=== PATIENT | female | born 1930 | race Caucasian/White ===

== ENCOUNTER 2018-12-21 18:23 | Inpatient (IN) | payer OTHER ==
--- NOTE | 2018-12-21 18:27 | PDOC ---
History of Present Illness - General History Source: Patient Exam Limitations: No Limitations, Clinical Condition - History of Present Illness Initial Comments: 88 yo F w a pmh of 3 CVAs, GA s/p stent, Afib, HTN, HCL, Pneumonia, COPD, Hiatal hernia, T2DM, cataracts presents to the ER with 1 day of confusion, nausea but no emesis, and a productive cough. The patient states she feels well and does not need to be here in the hospital. Her son who is at bedside says that something is wrong because yesterday his mom was able to walk with difficulty but today her legs are weak and she is having a hard time walking. She admits to orthopnea and recent dyspnea on exertion. The patient reports she took some mucinex this morning that she believes is the reason she is confused. The patient denies having a headache, blurry vision, neck pain, chest pain, SOB , difficulty breathing, numbness, weakness, tingling, chills, recent infections , abdominal pain, dysuria, frequency, or urgency. PCP: Dr. Saini PSH: Cataracts, stent Allergies: NKA, NKDA Social Hx: Former smoker quit in 1994, denies drinking alcohol or other substance usage. <Thomas Platt - Last Filed: 12/21/18 19:15> <Melina Dudley - Last Filed: 12/22/18 06:43> <Jennifer Ruiz - Last Filed: 12/22/18 07:27> - General Chief Complaint: Nausea Stated Complaint: NAUSEA Time Seen by Provider: 12/21/18 18:26 Past History - Past Medical History Anemia: No Asthma: No Cancer: Yes Cardiac Disorders: Yes (A-FIB, X 2 YEARS,HAD SUCCESSFUL CARDIOVERSION TILL 03/23 WHEN HAD INFECTION) CVA: Yes (2009,PERIPHERAL VISION IS GONE) COPD: Yes (MILD) CHF: No Dementia: No Diabetes: Yes (NIDDM) GI Disorders: Yes (HIATAL HERNIA) Disorders: No HTN: Yes Hypercholesterolemia: Yes Kidney Stones: Yes Liver Disease: No Seizures: No Thyroid Disease: No - Surgical History Abdominal Surgery: No Appendectomy: No Cardiac Surgery: Yes (STENT X1 2010,S/P SLIGHT GA 2010) Cholecystectomy: Yes () Lung Surgery: No Neurologic Surgery: No Orthopedic Surgery: No - Suicide/Smoking/Psychosocial Hx Smoking Status: No Smoking History: Former smoker Have you smoked in the past 12 months: No Number of Cigarettes Smoked Daily: 0 If you are a former smoker, when did you quit?: 1994 Hx Alcohol Use: No Drug/Substance Use Hx: No Substance Use Type: None Hx Substance Use Treatment: No <Thomas Platt - Last Filed: 12/21/18 19:15> <Melina Dudley - Last Filed: 12/22/18 06:43> <Jennifer Ruiz - Last Filed: 12/22/18 07:27> - Past Medical History Allergies/Adverse Reactions: Allergies Allergy/AdvReac Type Severity Reaction Status Date / Time No Known Allergies Allergy Verified 12/21/18 18:31 Home Medications: Ambulatory Orders Aspirin [ASA -] 81 mg PO DAILY 12/21/18 Candesartan Cilexetil [Atacand] 4 mg PO HS 12/21/18 Carvedilol [Coreg -] 12.5 mg PO BID 12/21/18 Famotidine [Acid Controller] 20 mg PO DAILY 12/21/18 Furosemide [Lasix] 20 mg PO DAILY 12/21/18 Potassium Chloride 0 meq PO BID 12/21/18 Sertraline HCl [Zoloft -] 0 mg PO DAILY 12/21/18 Simvastatin [Zocor -] 20 mg PO HS 12/21/18 Warfarin Sodium [Coumadin] 5 mg PO ASDIR 12/21/18 Review of Systems - Review of Systems Able to Perform ROS?: Yes Comments:: CONSTITUTIONAL: Present: Fever Absent: no chills, no fatigue EYES: Absent: visual changes ENT: Absent: ear pain, no sore throat CARDIOVASCULAR: Absent: chest pain, no palpitations RESPIRATORY: Present: Cough Absent: no SOB GI: Present: Nausea Absent: abdominal pain, no vomiting, no constipation, no diarrhea GENITOURINARY: Absent: dysuria, no frequency, no hematuria MUSKULOSKELETAL: Absent: back pain, no arthralgia, no myalgia SKIN: Absent: rash NEURO: Absent: headache <Thomas Platt - Last Filed: 12/21/18 19:15> *Physical Exam - Physical Exam Comments: Rectal Temp: 101.5 GENERAL: Patient is confused and speaks slowly. Well-appearing, well-nourished. No apparent distress. HEENT: Normocephalic, atraumatic. PERRL, EOM intact. CARDIOVASCULAR: Tachycardic rate. Normal S1, S2. Irregular rhythm. PULMONARY: No evidence of respiratory distress. Crackles at the right base. No wheezing, rales or rhonchi. ABDOMEN: Soft, non-distended, non-tender. EXTREMITIES: Normal ROM in all four extremities. No gross deformities. 1+ edema in both legs. SKIN: Warm, dry. No rash NEUROLOGICAL: No focal neurological deficits. <Thomas Platt - Last Filed: 12/21/18 19:15> - Vital Signs Last Vital Signs Temp Pulse Resp BP Pulse Ox 100 F H 76 18 108/48 L 95 12/21/18 21:31 12/21/18 21:31 12/21/18 21:31 12/21/18 21:31 12/21/18 21:31 <Melina Dudley - Last Filed: 12/22/18 06:43> - Vital Signs Last Vital Signs Temp Pulse Resp BP Pulse Ox 98.5 F 85 18 147/64 95 12/22/18 04:38 12/22/18 04:38 12/22/18 04:38 12/22/18 04:38 12/22/18 06:45 <Jennifer Ruiz - Last Filed: 12/22/18 07:27> Moderate Sedation - Procedure Monitoring Vital Signs: Procedure Monitoring Vital Signs Temperature 100 F H 12/21/18 21:31 Pulse Rate 76 12/21/18 21:31 Respiratory Rate 18 12/21/18 21:31 Blood Pressure 108/48 L 12/21/18 21:31 O2 Sat by Pulse Oximetry (%) 95 12/21/18 21:31 <Melina Dudley - Last Filed: 12/22/18 06:43> - Procedure Monitoring Vital Signs: Procedure Monitoring Vital Signs Temperature 98.5 F 12/22/18 04:38 Pulse Rate 85 12/22/18 04:38 Respiratory Rate 18 12/22/18 04:38 Blood Pressure 147/64 12/22/18 04:38 O2 Sat by Pulse Oximetry (%) 95 12/22/18 06:45 <Jennifer Ruiz - Last Filed: 12/22/18 07:27> ED Treatment Course - LABORATORY CBC & Chemistry Diagram: 12/21/18 19:02 12/21/18 19:02 - ADDITIONAL ORDERS Additional order review: Laboratory Results 12/21/18 12/21/18 12/21/18 21:33 19:02 19:02 PT with INR INR PTT (Actin FS) VBG pH POC VBG pCO2 POC VBG pO2 Mixed VBG HCO3 Sodium Potassium Chloride Carbon Dioxide Anion Gap BUN Creatinine Creat Clearance w eGFR Random Glucose Lactic Acid 1.8 Calcium Total Bilirubin AST ALT Alkaline Phosphatase Troponin I B-Natriuretic Peptide 4272.6 H Total Protein Albumin Urine Color Yellow Urine Appearance Clear Urine pH 5.5 Ur Specific [place] 1.020 Urine Protein Negative Urine Glucose (UA) Negative Urine Ketones Negative Urine Blood Negative Urine Nitrite Negative Urine Bilirubin Negative Urine Urobilinogen 0.2 Ur Leukocyte Esterase Negative 12/21/18 12/21/18 12/21/18 19:02 19:02 19:02 PT with INR 24.5 H INR 2.22 H PTT (Actin FS) 32.3 VBG pH 7.36 POC VBG pCO2 44.5 POC VBG pO2 31.0 Mixed VBG HCO3 24.7 Sodium Potassium Chloride Carbon Dioxide Anion Gap BUN Creatinine Creat Clearance w eGFR Random Glucose Lactic Acid Calcium Total Bilirubin AST ALT Alkaline Phosphatase Troponin I < 0.03 B-Natriuretic Peptide Total Protein Albumin Urine Color Urine Appearance Urine pH Ur Specific [place] Urine Protein Urine Glucose (UA) Urine Ketones Urine Blood Urine Nitrite Urine Bilirubin Urine Urobilinogen Ur Leukocyte Esterase 12/21/18 19:02 PT with INR INR PTT (Actin FS) VBG pH POC VBG pCO2 POC VBG pO2 Mixed VBG HCO3 Sodium 137 Potassium 4.4 Chloride 105 Carbon Dioxide 22 Anion Gap 10 BUN 28 H Creatinine 1.1 Creat Clearance w eGFR 46.77 Random Glucose 141 H Lactic Acid Calcium 8.6 Total Bilirubin 0.7 AST 41 H ALT 33 Alkaline Phosphatase 111 Troponin I B-Natriuretic Peptide Total Protein 6.7 Albumin 3.2 L Urine Color Urine Appearance Urine pH Ur Specific [place] Urine Protein Urine Glucose (UA) Urine Ketones Urine Blood Urine Nitrite Urine Bilirubin Urine Urobilinogen Ur Leukocyte Esterase 12/21/18 19:02 RBC 4.19 MCV 92.0 MCHC 32.3 RDW 13.6 MPV 9.3 Neutrophils % 83.9 H Lymphocytes % 6.9 L Monocytes % 7.0 Eosinophils % 2.0 Basophils % 0.2 - Medications Given in the ED: ED Medications Discontinued Medications Generic Name Dose Route Start Last Admin Trade Name Francisco PRN Reason Stop Dose Admin Acetaminophen 1,000 mg 12/21/18 19:04 12/21/18 19:11 Ofirmev Injection - IVPB 12/21/18 19:05 1,000 mg ONCE ONE Administration Diltiazem HCl 10 mg 12/21/18 18:45 12/21/18 19:53 Cardizem Injection - IVPUSH 12/21/18 18:46 10 mg ONCE ONE Administration Ondansetron HCl 4 mg 12/21/18 18:45 12/21/18 19:11 Zofran Injection IVPUSH 12/21/18 18:46 4 mg ONCE ONE Administration Sodium Chloride 1,000 ml 12/21/18 18:46 12/21/18 19:15 Normal Saline - IV 12/21/18 18:47 1,000 ml ONCE ONE Administration <Melina Dudley - Last Filed: 12/22/18 06:43> - LABORATORY CBC & Chemistry Diagram: 12/21/18 19:02 12/21/18 19:02 - ADDITIONAL ORDERS Additional order review: Laboratory Results 12/21/18 12/21/18 12/21/18 21:33 19:02 19:02 PT with INR INR PTT (Actin FS) VBG pH POC VBG pCO2 POC VBG pO2 Mixed VBG HCO3 Sodium Potassium Chloride Carbon Dioxide Anion Gap BUN Creatinine Creat Clearance w eGFR Random Glucose Lactic Acid 1.8 Calcium Total Bilirubin AST ALT Alkaline Phosphatase Troponin I B-Natriuretic Peptide 4272.6 H Total Protein Albumin Urine Color Yellow Urine Appearance Clear Urine pH 5.5 Ur Specific [place] 1.020 Urine Protein Negative Urine Glucose (UA) Negative Urine Ketones Negative Urine Blood Negative Urine Nitrite Negative Urine Bilirubin Negative Urine Urobilinogen 0.2 Ur Leukocyte Esterase Negative 12/21/18 12/21/18 12/21/18 19:02 19:02 19:02 PT with INR 24.5 H INR 2.22 H PTT (Actin FS) 32.3 VBG pH 7.36 POC VBG pCO2 44.5 POC VBG pO2 31.0 Mixed VBG HCO3 24.7 Sodium Potassium Chloride Carbon Dioxide Anion Gap BUN Creatinine Creat Clearance w eGFR Random Glucose Lactic Acid Calcium Total Bilirubin AST ALT Alkaline Phosphatase Troponin I < 0.03 B-Natriuretic Peptide Total Protein Albumin Urine Color Urine Appearance Urine pH Ur Specific [place] Urine Protein Urine Glucose (UA) Urine Ketones Urine Blood Urine Nitrite Urine Bilirubin Urine Urobilinogen Ur Leukocyte Esterase 12/21/18 19:02 PT with INR INR PTT (Actin FS) VBG pH POC VBG pCO2 POC VBG pO2 Mixed VBG HCO3 Sodium 137 Potassium 4.4 Chloride 105 Carbon Dioxide 22 Anion Gap 10 BUN 28 H Creatinine 1.1 Creat Clearance w eGFR 46.77 Random Glucose 141 H Lactic Acid Calcium 8.6 Total Bilirubin 0.7 AST 41 H ALT 33 Alkaline Phosphatase 111 Troponin I B-Natriuretic Peptide Total Protein 6.7 Albumin 3.2 L Urine Color Urine Appearance Urine pH Ur Specific [place] Urine Protein Urine Glucose (UA) Urine Ketones Urine Blood Urine Nitrite Urine Bilirubin Urine Urobilinogen Ur Leukocyte Esterase 12/21/18 19:02 RBC 4.19 MCV 92.0 MCHC 32.3 RDW 13.6 MPV 9.3 Neutrophils % 83.9 H Lymphocytes % 6.9 L Monocytes % 7.0 Eosinophils % 2.0 Basophils % 0.2 - Medications Given in the ED: ED Medications Discontinued Medications Generic Name Dose Route Start Last Admin Trade Name Freq PRN Reason Stop Dose Admin Acetaminophen 1,000 mg 12/21/18 19:04 12/21/18 19:11 Ofirmev Injection - IVPB 12/21/18 19:05 1,000 mg ONCE ONE Administration Diltiazem HCl 10 mg 12/21/18 18:45 12/21/18 19:53 Cardizem Injection - IVPUSH 12/21/18 18:46 10 mg ONCE ONE Administration Furosemide 40 mg 12/21/18 21:59 12/21/18 22:10 Lasix Injection - IVPUSH 12/21/18 22:00 40 mg ONCE ONE Administration Vancomycin HCl 1,000 mg/ 250 mls @ 166.667 mls/hr 12/21/18 22:07 12/21/18 22: 40 Dextrose IVPB 12/21/18 23:36 166.667 mls/hr ONCE ONE Administration Protocol Ondansetron HCl 4 mg 12/21/18 18:45 12/21/18 19:11 Zofran Injection IVPUSH 12/21/18 18:46 4 mg ONCE ONE Administration Sodium Chloride 1,000 ml 12/21/18 18:46 12/21/18 19:15 Normal Saline - IV 12/21/18 18:47 1,000 ml ONCE ONE Administration Warfarin Sodium 5 mg 12/22/18 01:18 12/22/18 01:27 Coumadin - PO 12/22/18 01:19 Not Given NOW ONE <Jennifer Ruiz - Last Filed: 12/22/18 07:27> Medical Decision Making - Medical Decision Making 88 yo F w a pmh of 3 CVAs, GA s/p stent, Afib, HTN, HCL, Pneumonia, COPD, Hiatal hernia, T2DM, cataracts presents to the ER with 1 day of confusion, nausea but no emesis, and a productive cough. The patient states she feels well and does not need to be here in the hospital. Her son who is at bedside says that something is wrong because yesterday his mom was able to walk with difficulty but today her legs are weak and she is having a hard time walking. She admits to orthopnea and recent dyspnea on exertion. The patient reports she took some mucinex this morning that she believes is the reason she is confused. VS: Tachycardic, hypoxic, febrile to 101.5 rectally. DDx IBNLT: Sepsis. influenza, PNA vs UTI vs gastroenteritis vs cellulitis. CVA, GA, arrhythmia, Afib w RVR. Plan: ED adult spesis workup. Labs, urine, ekg, cxr, IV hydration, analgesia, +/ - diltiazem, Abx, re-assess. Patient will likely be admitted after workup. Patient will be signed out to the night team. <Thomas Platt - Last Filed: 12/21/18 19:15> *DC/Admit/Observation/Transfer <Thomas Platt - Last Filed: 12/21/18 19:15> <Melina Dudley - Last Filed: 12/22/18 06:43> - Discharge Dispostion Decision to Admit order: Yes <Jennifer Ruiz - Last Filed: 12/22/18 07:27> Diagnosis at time of Disposition: Weakness, Gait disturbance Fever Qualifiers: Fever type: unspecified Qualified Code(s): R50.9 - Fever, unspecified - Discharge Dispostion Condition at time of disposition: Stable
--- NOTE | 2018-12-21 18:31 | PDOC ---
Attending Attestation - Resident Resident Name: Thomas Platt - ED Attending Attestation I have performed the following: I have examined & evaluated the patient, The case was reviewed & discussed with the resident, I agree w/resident's findings & plan - HPI HPI: 12/21/18 18:30 88 YOF with h/o CVA on ASA and plavix, Atrial fibrillation on Coumadin, HTN, HLD, COPD, hiatal hernia, NIDDM, cataracts presenting with nausea today; also with productive cough and congestion x 2 days. no other sick contacts. from home. 12/21/18 19:02 - Physicial Exam PE: 12/21/18 19:03 NAD, elderly female, PERRL, EOMI, MMM, pale conjunctiva, anicteric; neck supple. lungs with focal wheezing/mild crackles on right mid-lower lobe. + irregular irregular, no murmurs. abdomen soft nontender. SABA x4, no focal neuro deficits. No peripheral edema. normal color for ethnicity, WWP. trace BLE edema - Medical Decision Making 12/21/18 19:04 See HPI for details' DDx influenza, viral illness, URI, pneumonia, effusion. electrolyte/metabolic derangements, sepsis, dehydration. Vital signs reviewed, Afib RVR 2/2 fever, tachycardia from the fever. no respiratory distress, borderline low sats 94% but has COPD. Prior notes reviewed, including admissions, discharges and consultations. pending tests, septic workup: cultures, UA, urine cx, lactic acid, CBC, CMP, influenza test, CXR EKG Afib RVR, no interval abnormalities, narrow QRS, ST and T wave segments and morphology normal. Nonspecific T wave abnormalities ED course: IVF, tylenol for fever; likely underlying cause from his Afib RVR 2/ 2 the fever. s/o pending lab results, cultures, treatment, and ultimate dispo anticipate admission for weakness, sepsis 2/2 respiratory cause vs viral illness , cardiopulmonary etiology unclear at this time. 12/21/18 19:10 12/21/18 19:11 12/21/18 19:11 12/22/18 07:30
[2018-12-21] MEDS ORDERED: ONDANSETRON 4 MG/2 ML VIAL IVPUSH ONE (18:45)
[2018-12-21] MEDS ORDERED: dilTIAZem HCL 50 MG/10 ML - 10 ML VIAL IVPUSH ONE (18:45)
[2018-12-21] MEDS ORDERED: SODIUM CHLORIDE 0.9% 500 ML INFUS.BAG IV ONE (18:46)
[2018-12-21] MEDS ORDERED: ACETAMINOPHEN 1000 MG/100 ML VIAL (NON FORMULARY) IVPB ONE (19:04)
[2018-12-21] MEDS ORDERED: ONDANSETRON 4 MG/2 ML VIAL ONE (19:06)
[2018-12-21] MEDS ORDERED: ACETAMINOPHEN INJECTION 100 ML IVPB ONE (19:06)
[2018-12-21 19:28] LABS: BASO % 0.2 % (0-2.0); HEMATOCRIT 38.5 % (32.4-45.2); HEMOGLOBIN 12.4 GM/dl (10.7-15.3); LYMPH % 6.9 % (8-40); MCH 29.7 pg (25.7-33.7); MCHC 32.3 g/dl (32.0-36.0); MEAN PLT VOLUME 9.3 fl (7.5-11.1); NEUT % 83.9 % (42.8-82.8); PLATELET COUNT 123 K/MM3 (134-434); RBC 4.19 M/mm3 (3.60-5.2); RDW 13.6 % (11.6-15.6); WHITE BLOOD COUNT 7.8 K/mm3 (4.0-10.8)
[2018-12-21 19:39] LABS: ALBUMIN 3.2 g/dl (3.4-5.0); ALK PHOS 111 U/L (45-117); ANION GAP 10 MMOL/L (8-16); BILIRUBIN,TOTAL 0.7 mg/dl (0.2-1); BLOOD UREA NITROGEN 28 mg/dl (7-18); CALCIUM 8.6 mg/dl (8.5-10); CHLORIDE 105 mmol/L (98-107); CO2 22 mmol/L (21-32); CREATININE 1.1 mg/dl (0.55-1.3); GLUCOSE,RANDOM 141 mg/dl (74-106); POTASSIUM 4.4 mmol/L (3.5-5.1); SGOT/AST 41 U/L (15-37); SGPT/ALT 33 U/L (13-61); SODIUM 137 mmol/L (136-145); TOT PROT 6.7 g/dl (6.4-8.2)
[2018-12-21 19:42] LABS: ACTIVATED PTT 32.3 SECONDS (25.2-36.5)
[2018-12-21 19:47] LABS: INR 2.22 (0.82-1.09); PROTHROMBIN TIME (PATIENT) 24.5 SEC (10.2-13.0)
[2018-12-21] MEDS ORDERED: dilTIAZem HCL 50 MG/10 ML - 10 ML VIAL ONE (19:47)
[2018-12-21 20:02] LABS: VENOUS PC02 44.5 mmHg (38-52); VENOUS PH 7.36 (7.32-7.42)
[2018-12-21 21:39] LABS: PH,URINE 5.5 (4.5-8); URINE APPEARANCE Clear; URINE BILIRUBIN Negative (NEGATIVE); URINE COLOR Yellow; URINE GLUCOSE (UA) Negative (NEGATIVE); URINE KETONE Negative (NEGATIVE); URINE LEUK ESTERASE Negative (NEGATIVE); URINE NITRITE Negative (NEGATIVE); URINE PROTEIN Negative (NEGATIVE); URINE UROBILINOGEN 0.2 (0.2-1.0)
--- NOTE | 2018-12-21 21:54 | PDOC ---
*Physical Exam - Vital Signs Last Vital Signs Temp Pulse Resp BP Pulse Ox 100 F H 76 18 108/48 L 95 12/21/18 21:31 12/21/18 21:31 12/21/18 21:31 12/21/18 21:31 12/21/18 21:31 ED Treatment Course - LABORATORY CBC & Chemistry Diagram: 12/21/18 19:02 12/21/18 19:02 - ADDITIONAL ORDERS Additional order review: Laboratory Results 12/21/18 12/21/18 12/21/18 21:33 19:02 19:02 PT with INR INR PTT (Actin FS) VBG pH POC VBG pCO2 POC VBG pO2 Mixed VBG HCO3 Sodium Potassium Chloride Carbon Dioxide Anion Gap BUN Creatinine Creat Clearance w eGFR Random Glucose Lactic Acid 1.8 Calcium Total Bilirubin AST ALT Alkaline Phosphatase Troponin I B-Natriuretic Peptide 4272.6 H Total Protein Albumin Urine Color Yellow Urine Appearance Clear Urine pH 5.5 Ur Specific [place] 1.020 Urine Protein Negative Urine Glucose (UA) Negative Urine Ketones Negative Urine Blood Negative Urine Nitrite Negative Urine Bilirubin Negative Urine Urobilinogen 0.2 Ur Leukocyte Esterase Negative 12/21/18 12/21/18 12/21/18 19:02 19:02 19:02 PT with INR 24.5 H INR 2.22 H PTT (Actin FS) 32.3 VBG pH 7.36 POC VBG pCO2 44.5 POC VBG pO2 31.0 Mixed VBG HCO3 24.7 Sodium Potassium Chloride Carbon Dioxide Anion Gap BUN Creatinine Creat Clearance w eGFR Random Glucose Lactic Acid Calcium Total Bilirubin AST ALT Alkaline Phosphatase Troponin I < 0.03 B-Natriuretic Peptide Total Protein Albumin Urine Color Urine Appearance Urine pH Ur Specific [place] Urine Protein Urine Glucose (UA) Urine Ketones Urine Blood Urine Nitrite Urine Bilirubin Urine Urobilinogen Ur Leukocyte Esterase 12/21/18 19:02 PT with INR INR PTT (Actin FS) VBG pH POC VBG pCO2 POC VBG pO2 Mixed VBG HCO3 Sodium 137 Potassium 4.4 Chloride 105 Carbon Dioxide 22 Anion Gap 10 BUN 28 H Creatinine 1.1 Creat Clearance w eGFR 46.77 Random Glucose 141 H Lactic Acid Calcium 8.6 Total Bilirubin 0.7 AST 41 H ALT 33 Alkaline Phosphatase 111 Troponin I B-Natriuretic Peptide Total Protein 6.7 Albumin 3.2 L Urine Color Urine Appearance Urine pH Ur Specific [place] Urine Protein Urine Glucose (UA) Urine Ketones Urine Blood Urine Nitrite Urine Bilirubin Urine Urobilinogen Ur Leukocyte Esterase 12/21/18 19:02 RBC 4.19 MCV 92.0 MCHC 32.3 RDW 13.6 MPV 9.3 Neutrophils % 83.9 H Lymphocytes % 6.9 L Monocytes % 7.0 Eosinophils % 2.0 Basophils % 0.2 - Medications Given in the ED: ED Medications Discontinued Medications Generic Name Dose Route Start Last Admin Trade Name Francisco PRN Reason Stop Dose Admin Acetaminophen 1,000 mg 12/21/18 19:04 12/21/18 19:11 Ofirmev Injection - IVPB 12/21/18 19:05 1,000 mg ONCE ONE Administration Diltiazem HCl 10 mg 12/21/18 18:45 12/21/18 19:53 Cardizem Injection - IVPUSH 12/21/18 18:46 10 mg ONCE ONE Administration Ondansetron HCl 4 mg 12/21/18 18:45 12/21/18 19:11 Zofran Injection IVPUSH 12/21/18 18:46 4 mg ONCE ONE Administration Sodium Chloride 1,000 ml 12/21/18 18:46 12/21/18 19:15 Normal Saline - IV 12/21/18 18:47 1,000 ml ONCE ONE Administration Progress Note - Progress Note Progress Note: Care of this patient received from Dr Ruiz. This 88-year-old woman presents with a one-day history of weakness and inability to ambulate secondary to her weakness. She also has a productive cough and dyspnea on exertion. Infectious workup has generally been negative with no elevation of white blood cell count, normal UA and no infiltrate on chest x-ray. BNP is elevated at 4224. Portable chest x-ray shows some prominence of vasculature without infiltrate or effusion. Patient is followed by Dr. Saini. Since patient is significantly weak, cannot ambulate secondary to this and has evidence of CHF, [facility]ist called regarding admission. Case discussed with GABRIELLA Huntley. Patient to be admitted to hospitalist service, Dr. Muñoz *DC/Admit/Observation/Transfer Diagnosis at time of Disposition: Weakness, Gait disturbance Fever Qualifiers: Fever type: unspecified Qualified Code(s): R50.9 - Fever, unspecified - Discharge Dispostion Condition at time of disposition: Stable Decision to Admit order: Yes - Referrals - Patient Instructions - Post Discharge Activity
[2018-12-21] MEDS ORDERED: FUROSEMIDE 40 MG/4 ML INJECTABLE VIAL IVPUSH ONE (21:59)
[2018-12-21] MEDS ORDERED: FUROSEMIDE 40 MG/4 ML INJECTABLE VIAL ONE (22:07)
[2018-12-21] MEDS ORDERED: VANCOMYCIN 1,000 MG in DEXTROSE 5%-WATER - 250 ML IVPB ONE (22:07)
[2018-12-21] MEDS ORDERED: VANCOMYCIN 1,000 MG VIAL (RESTRICTED TO ID ONLY) ONE (22:11)
[2018-12-21 23:32] VITALS: BMI 26.9
[2018-12-22] MEDS ORDERED: SENNOSIDES/DOCUSATE COMBO (SENNA PLUS) TABLET (UD) PO PRN (00:37)
[2018-12-22] MEDS ORDERED: WARFARIN NA 7.5 MG TABLET (FP) PO SCH ×2 (00:45→18:00)
--- NOTE | 2018-12-22 00:51 | HP ---
Admitting History and Physical - Primary Care Physician PCP: Mukesh Saini - Admission Chief Complaint: generalized weakness History of Present Illness: 88 year old F with h/o atrial fibrillation, CVA x3, VT x 2 s/p PCI, DMII and HTN reports an overwhelming feeling of malaise on the afternoon of 12/21 which severely limited her mobility. Additional symptoms include productive cough, MALLOY and mild confusion. She reports sick contacts with her grandchildren who "all had a cough." Soon after heir visit, she noted a productive cough, headache (parietal), decreased appetite and weakness. She decided to present to ED for evaluation. In ED vitals were T 101.5 (Tylenol 1G given)>>100.0>> 98.4, BP 104/69, HR afib 114 (cardizem 10mg IVP) >>96bpm, RR 20. PT given one dose vanco 1gm for FUO and lasix 40mg IVP for increased pulm congestion on CXR. History Source: Patient Limitations to Obtaining History: No Limitations - Past Medical History Cardiovascular: Yes: CAD, HTN, Hyperlipdemia, VT Renal/: Yes: Renal Calculi Reproductive: Yes: Postmenopausal ...: No Psych: Yes: Depression - Past Surgical History Additional Past Surgical History: bilateral cataracts CAD s/p PCI tonsillectomy cholecystectomy Lithotripsy - Smoking History Smoking history: Former smoker Have you smoked in the past 12 months: No Aproximately how many cigarettes per day: 0 If you are a former smoker, when did you quit?: 1994 - Alcohol/Substance Use Hx Alcohol Use: No Home Medications - Allergies Allergies/Adverse Reactions: Allergies Allergy/AdvReac Type Severity Reaction Status Date / Time No Known Allergies Allergy Verified 12/21/18 18:31 - Home Medications Home Medications: Ambulatory Orders Aspirin [ASA -] 81 mg PO DAILY 12/21/18 Candesartan Cilexetil [Atacand] 4 mg PO HS 12/21/18 Carvedilol [Coreg -] 12.5 mg PO BID 12/21/18 Famotidine [Acid Controller] 20 mg PO DAILY 12/21/18 Furosemide [Lasix] 20 mg PO DAILY 12/21/18 Potassium Chloride 0 meq PO BID 12/21/18 Sertraline HCl [Zoloft -] 0 mg PO DAILY 12/21/18 Simvastatin [Zocor -] 20 mg PO HS 12/21/18 Warfarin Sodium [Coumadin] 5 mg PO ASDIR 12/21/18 Family Disease History - Family Disease History Family Disease History: Other: Father ( unknown), Mother ( uknown) Review of Systems - Review of Systems Constitutional: reports: Lethargy, Weakness HENT: reports: Hearing Loss Neck: reports: No Symptoms Cardiovascular: reports: No Symptoms Respiratory: reports: Cough, Wheezing Gastrointestinal: reports: No Symptoms Genitourinary: reports: No Symptoms Breasts: reports: No Symptoms Reported Musculoskeletal: reports: Muscle Weakness Integumentary: reports: No Symptoms Neurological: reports: Headache, Unsteady Gait, Weakness Endocrine: reports: No Symptoms Hematology/Lymphatic: reports: No Symptoms Psychiatric: reports: No Symptoms Physical Examination Vital Signs: Vital Signs Temperature 98.4 F 12/21/18 22:55 Pulse Rate 76 12/21/18 22:55 Respiratory Rate 20 12/21/18 22:55 Blood Pressure 100/64 12/21/18 22:55 O2 Sat by Pulse Oximetry (%) 96 12/21/18 22:55 Constitutional: Yes: Well Nourished, No Distress, Calm Eyes: Yes: Conjunctiva Clear, PERRL HENT: Yes: Atraumatic, Normocephalic Neck: Yes: Supple, Trachea Midline Cardiovascular: Yes: Regular Rate and Rhythm Respiratory: Yes: Regular, Rhonchi, Wheezes Gastrointestinal: Yes: Soft, Abdomen, Obese, Hypoactive Bowel Sounds ...Rectal Exam: Yes: Deferred Musculoskeletal: Yes: WNL Extremities: Yes: WNL Peripheral Pulses WNL: Yes Peripheral Pulses: Left Radial: 2+, Right Radial: 2+, Left Doralis Pedis: 1+, Right Dorsalis Pedis: 1+ Integumentary: Yes: WNL Neurological: Yes: Alert, Oriented ...Motor Strength: WNL Psychiatric: Yes: Alert, Oriented Labs: CBC, BMP 12/21/18 19:02 12/21/18 19:02 Imaging - Results Chest X-ray: Pending (CXR 12/22/18 ordered), Report Reviewed Problem List - Problems (1) Atrial fibrillation Assessment/Plan: coumadin 5mg qpm continuous telemetry bleeding precautions Code(s): I48.91 - UNSPECIFIED ATRIAL FIBRILLATION (2) Prophylactic measure Assessment/Plan: senna/colace DVT PPX: pt already therapeutic on coumadin OOB to chair as tolerated GI PPX: pepcid 20mg daily Code(s): Z29.9 - ENCOUNTER FOR PROPHYLACTIC MEASURES, UNSPECIFIED (3) HLD (hyperlipidemia) Assessment/Plan: simvastatin 20mg qhs cardiac diet Code(s): E78.5 - HYPERLIPIDEMIA, UNSPECIFIED (4) Fever Assessment/Plan: APAP PRN fever send resp PCR to assess for other viral infections VAnco 1 dose in ED, will monitor off abx. f/u blood and urine cultures Code(s): R50.9 - FEVER, UNSPECIFIED Qualifiers: Fever type: unspecified Qualified Code(s): R50.9 - Fever, unspecified (5) Volume overload Assessment/Plan: increase lasix to 40mg, IVP echo to assess cardiac function Fluid restrict 1L daily Code(s): E87.70 - FLUID OVERLOAD, UNSPECIFIED (6) CAD in [place] artery Assessment/Plan: ASA 81mg Coreg 12.5mg BID Code(s): I25.10 - ATHSCL HEART DISEASE OF [place] CORONARY ARTERY W/O ANG PCTRS Assessment/Plan HTN: -hold atacand depression: Zoloft 25mg daily DISPO: Full code no SW issues identified Visit type - Emergency Visit Emergency Visit: Yes ED Registration Date: 12/21/18 Care time: The patient presented to the Emergency Department on the above date and was hospitalized for further evaluation of their emergent condition. - New Patient This patient is new to me today: Yes Date on this admission: 12/22/18 - Critical Care Critical Care patient: No
[2018-12-22] MEDS ORDERED: WARFARIN NA 5 MG TABLET (UD) PO ONE ×2 (01:18→01:30)
[2018-12-22] MEDS: ALBUTEROL SO4 2.5/IPRATROPIUM 0.5 INH SOL 3 ML VIAL.NEB. NEB PRN ×3 (01:28→21:04)
--- NOTE | 2018-12-22 08:37 | PN ---
Physical Exam: SUBJECTIVE: Patient seen and examined, pt reports feeling better, sob improved, productive cough with yellow sputum persist,denies cp,palpitations abdominal pain, N/V/D or urinary symptoms. OBJECTIVE: Vital Signs Period Temp Pulse Resp BP Sys/Louis Pulse Ox Last 24 Hr 98.1 F-101.5 F 73-129 18-21 86-147/48-87 94-99 GENERAL: The patient is awake, alert, and fully oriented, in no acute distress. HEAD: Normal with no signs of trauma. EYES: PERRL, extraocular movements intact, sclera anicteric, conjunctiva clear. No ptosis. ENT: Ears normal, nares patent, oropharynx clear without exudates, moist mucous membranes. NECK: Trachea midline, full range of motion, supple. LUNGS: Breath sounds equal, clear to auscultation bilaterally, no wheezes, no crackles, no accessory muscle use. HEART: Irregular without murmur, rub or gallop. ABDOMEN: Soft, nontender, nondistended, normoactive bowel sounds, no guarding, no rebound, no hepatosplenomegaly, no masses. EXTREMITIES: 2+ pulses, warm, well-perfused, 1+ edema. NEUROLOGICAL: Cranial nerves II through XII grossly intact. Normal speech, gait not observed. PSYCH: Normal mood, normal affect. SKIN: Warm, dry, normal turgor, no rashes or lesions noted Laboratory Results - last 24 hr 12/21/18 12/21/18 12/21/18 19:02 19:02 19:02 WBC 7.8 RBC 4.19 Hgb 12.4 Hct 38.5 MCV 92.0 MCH 29.7 MCHC 32.3 RDW 13.6 Plt Count 123 L MPV 9.3 Absolute Neuts (auto) 6.6 Neutrophils % 83.9 H Lymphocytes % 6.9 L Monocytes % 7.0 Eosinophils % 2.0 Basophils % 0.2 PT with INR INR PTT (Actin FS) VBG pH POC VBG pCO2 POC VBG pO2 Mixed VBG HCO3 Sodium 137 Potassium 4.4 Chloride 105 Carbon Dioxide 22 Anion Gap 10 BUN 28 H Creatinine 1.1 Creat Clearance w eGFR 46.77 Random Glucose 141 H Lactic Acid Calcium 8.6 Total Bilirubin 0.7 AST 41 H ALT 33 Alkaline Phosphatase 111 Troponin I < 0.03 B-Natriuretic Peptide Total Protein 6.7 Albumin 3.2 L Urine Color Urine Appearance Urine pH Ur Specific [place] Urine Protein Urine Glucose (UA) Urine Ketones Urine Blood Urine Nitrite Urine Bilirubin Urine Urobilinogen Ur Leukocyte Esterase Influenza A (Rapid) Influenza B (Rapid) 12/21/18 12/21/18 12/21/18 19:02 19:02 19:02 WBC RBC Hgb Hct MCV MCH MCHC RDW Plt Count MPV Absolute Neuts (auto) Neutrophils % Lymphocytes % Monocytes % Eosinophils % Basophils % PT with INR 24.5 H INR 2.22 H PTT (Actin FS) 32.3 VBG pH 7.36 POC VBG pCO2 44.5 POC VBG pO2 31.0 Mixed VBG HCO3 24.7 Sodium Potassium Chloride Carbon Dioxide Anion Gap BUN Creatinine Creat Clearance w eGFR Random Glucose Lactic Acid 1.8 Calcium Total Bilirubin AST ALT Alkaline Phosphatase Troponin I B-Natriuretic Peptide Total Protein Albumin Urine Color Urine Appearance Urine pH Ur Specific [place] Urine Protein Urine Glucose (UA) Urine Ketones Urine Blood Urine Nitrite Urine Bilirubin Urine Urobilinogen Ur Leukocyte Esterase Influenza A (Rapid) Influenza B (Rapid) 12/21/18 12/21/18 12/21/18 19:02 19:12 21:33 WBC RBC Hgb Hct MCV MCH MCHC RDW Plt Count MPV Absolute Neuts (auto) Neutrophils % Lymphocytes % Monocytes % Eosinophils % Basophils % PT with INR INR PTT (Actin FS) VBG pH POC VBG pCO2 POC VBG pO2 Mixed VBG HCO3 Sodium Potassium Chloride Carbon Dioxide Anion Gap BUN Creatinine Creat Clearance w eGFR Random Glucose Lactic Acid Calcium Total Bilirubin AST ALT Alkaline Phosphatase Troponin I B-Natriuretic Peptide 4272.6 H Total Protein Albumin Urine Color Yellow Urine Appearance Clear Urine pH 5.5 Ur Specific [place] 1.020 Urine Protein Negative Urine Glucose (UA) Negative Urine Ketones Negative Urine Blood Negative Urine Nitrite Negative Urine Bilirubin Negative Urine Urobilinogen 0.2 Ur Leukocyte Esterase Negative Influenza A (Rapid) Negative Influenza B (Rapid) Negative Active Medications Generic Name Dose Route Start Last Admin Trade Name Freq PRN Reason Stop Dose Admin Acetaminophen 650 mg 12/22/18 00:38 Tylenol - PO Q6H PRN FEVER Albuterol/Ipratropium 1 amp 12/22/18 00:37 12/22/18 01:28 Duoneb - NEB 1 amp Q6H PRN Administration SHORTNESS OF BREATH Aspirin 81 mg 12/22/18 10:00 Asa - PO DAILY CES[facility]IO Carvedilol 12.5 mg 12/22/18 10:00 Coreg - PO BID CES[facility]IO Docusate Sodium 100 mg 12/22/18 10:00 Colace Liquid - PO BID CES[facility]IO Famotidine 20 mg 12/22/18 10:00 Pepcid - PO DAILY C[facility]IO Furosemide 40 mg 12/22/18 10:00 Lasix Injection - IVPUSH DAILY [facility]IO Non-Formulary Medication 20 mg 12/22/18 22:00 Simvastatin PO HS CES[facility]IO Senna/Docusate Sodium 2 tablet 12/22/18 00:37 Pericolace - PO HS PRN CONSTIPATION Sertraline HCl 25 mg 12/22/18 10:00 Zoloft - PO DAILY [facility] Warfarin Sodium 5 mg 12/22/18 00:45 12/22/18 01:27 Coumadin - PO Not Given ASDIR [facility] EKG Afib RVR, no interval abnormalities, narrow QRS, ST and T wave segments and morphology normal. Nonspecific T wave abnormalities CxR: No acute pathology ASSESSMENT/PLAN: This is an 88 year old F with h/o atrial fibrillation on Coumadin, CVA x3, [place] x 2 s/p PCI, DM type 2, HDL, CHF and HTN , who presents with SOB, weakness, fever, productive cough. PMD Dr. Saini cardiology Dr. Higgins *SOB,productive cough - BNP >4000 - cxr: No acute pathology - s/p Lasix in ER - will cont on IV lasix - will get Echo -Fluid restrict 1L daily - tele monitoring - will get cardiology consult - O2 sat stable on RA - daily weight loss and monitor I&O's *Atrial fibrillation - on tele , HR in 100-110's - will cont on Coreg for rate control and Coumadin - INR therapeutic *Fever/ weakness - Influenza neg - UA, cxr- neg - max Temp 101.5, afebrile now -normal lactic acidosis - will f/u on culture reports - s/p one dose of Vanco in ER - will monitor off abx - will check sputum *CAD in [place] artery - will cont on ASA,Coreg and Statin * HTN - will cont on Coreg - Atacand ( NF) * HDL - will cont on Statin *Depression -will cont on Zoloft 25mg daily * Hx of DM- not any meds - will check FS AC&HS - will check HgbAlc - Lispro sliding scale *DVT PPX: pt already therapeutic on Coumadin GI PPX: pepcid 20mg daily Visit type - Emergency Visit Emergency Visit: Yes ED Registration Date: 12/21/18 Care time: The patient presented to the Emergency Department on the above date and was hospitalized for further evaluation of their emergent condition. - New Patient This patient is new to me today: Yes Date on this admission: 12/22/18 - Critical Care Critical Care patient: No
[2018-12-22 08:56] LABS: HEMOGLOBIN 11.7 GM/dl (10.7-15.3); MCH 30.2 pg (25.7-33.7); MCHC 33.3 g/dl (32.0-36.0); MEAN CELL VOLUME 90.8 fl (80-96); MEAN PLT VOLUME 9.9 fl (7.5-11.1); PLATELET COUNT 99 K/MM3 (134-434); RBC 3.86 M/mm3 (3.60-5.2); RDW 13.3 % (11.6-15.6); WHITE BLOOD COUNT 5.5 K/mm3 (4.0-10.8)
[2018-12-22 09:11] LABS: INR 1.7 (0.82-1.09); PROTHROMBIN TIME (PATIENT) 18.8 SEC (10.2-13.0)
[2018-12-22 09:19] LABS: ALBUMIN 3.3 g/dl (3.4-5.0); ALK PHOS 107 U/L (45-117); ANION GAP 10 MMOL/L (8-16); BILIRUBIN,TOTAL 0.7 mg/dl (0.2-1); BLOOD UREA NITROGEN 26 mg/dl (7-18); CALCIUM 8.3 mg/dl (8.5-10); CHLORIDE 102 mmol/L (98-107); CHOLESTEROL 96 mg/dl (50-200); CO2 27 mmol/L (21-32); CREATININE 1.2 mg/dl (0.55-1.3); GLUCOSE,RANDOM 103 mg/dl (74-106); HDL CHOLESTEROL 41 mg/dl (40-60); LDL CHOLESTEROL (ONLY DFH) 35 mg/dl (5-100); MAGNESIUM 1.9 mg/dL (1.8-2.4); PHOSPHOROUS 3.5 mg/dl (2.5-4.9); POTASSIUM 4.2 mmol/L (3.5-5.1); SGOT/AST 35 U/L (15-37); SGPT/ALT 34 U/L (13-61); SODIUM 139 mmol/L (136-145); TOT PROT 6.6 g/dl (6.4-8.2); TRIGLYCERIDES 102 mg/dl (0-150)
--- NOTE | 2018-12-22 09:28 | EKG ---
Test Reason : Blood Pressure : / mmHG Vent. Rate : 116 BPM Atrial Rate : 147 BPM P-R Int : 000 ms QRS Dur : 078 ms QT Int : 270 ms P-R-T Axes : 000 -20 151 degrees QTc Int : 375 ms ATRIAL FIBRILLATION WITH RAPID VENTRICULAR RESPONSE LOW VOLTAGE QRS CANNOT RULE OUT ANTERIOR INFARCT , AGE UNDETERMINED ABNORMAL ECG Confirmed by Lazaro Grey MD ([id number]) on 12/22/2018 9:28:34 AM Referred By: Confirmed By:Lazaro Grey MD
[2018-12-22] MEDS: FUROSEMIDE 40 MG/4 ML INJECTABLE VIAL IVPUSH SCH (10:06)
[2018-12-22] MEDS: FAMOTIDINE 20 MG TABLET PO SCH (10:06)
[2018-12-22] MEDS: ASPIRIN 81 MG CHEWABLE TABLETS PO SCH (10:06)
[2018-12-22] MEDS: SERTRALINE HCL 25 MG TABLET (FP) PO SCH (10:06)
[2018-12-22] MEDS: CARVEDILOL 12.5 MG TABLET (FP) PO SCH ×2 (10:06→21:03)
[2018-12-22] MEDS: DOCUSATE SODIUM 50 MG/5 ML ML *BULK BOTTLE PO SCH ×2 (10:07→21:10)
[2018-12-22 10:43] LABS: N-TERMINAL BNP 4783.9 pg/ml (5-450)
[2018-12-22] MEDS: INSULIN SLIDING SCALE (NOVOLOG) 1 VIAL SQ SCH ×3 (11:05→21:10)
--- NOTE | 2018-12-22 13:18 | CON.CARD ---
Cardiology Consult (text) - Consultation Consultation Note: cc: weakness hpi: 88 f hx cad, nstemi, pci, afib, htn, dchf, dm, hld, cva here with weakness. Had been feeling well until yesterday when she was sitting down and tried to get up to use bathroom but felt too weak to stand. No sob, cp palps dizzy loc pnd orthopnea le edema. Found to have fever er, got abx. Also getting iv lasix for chf. pmh: per hpi psh: pci social: ex tob fam: nc ros: per hpi; no vomiting, abd pain, gib hematuria dysuria, wt loss headache, + nausea meds: Home Medications Medication Instructions Recorded Aspirin [ASA -] 81 mg PO DAILY 12/21/18 Candesartan Cilexetil [Atacand] 4 mg PO HS 12/21/18 Carvedilol [Coreg -] 12.5 mg PO BID 12/21/18 Famotidine [Acid Controller] 20 mg PO DAILY 12/21/18 Furosemide [Lasix] 20 mg PO DAILY 12/21/18 Potassium Chloride 0 meq PO BID 12/21/18 Sertraline HCl [Zoloft -] 0 mg PO DAILY 12/21/18 Simvastatin [Zocor -] 20 mg PO HS 12/21/18 Warfarin Sodium [Coumadin] 5 mg PO ASDIR 12/21/18 pe: Vital Signs Period Temp Pulse Resp BP Sys/Louis Pulse Ox Last 24 Hr 98.1 F-101.5 F 73-129 18-21 86-147/48-87 94-99 nad no jvd irreg s1s2 no mrg scattered wheeze, mild basilar crackles bl, nl eff aao3 no le e/c/c abd nt nd pos bs no jaundice diaphoresis pos dp pt no carotid bruits Current Medications Generic Name Dose Route Start Last Admin Trade Name Freq PRN Reason Stop Dose Admin Acetaminophen 650 mg 12/22/18 00:38 Tylenol - PO Q6H PRN FEVER Albuterol/Ipratropium 1 amp 12/22/18 00:37 12/22/18 01:28 Duoneb - NEB 1 amp Q6H PRN Administration SHORTNESS OF BREATH Aspirin 81 mg 12/22/18 10:00 12/22/18 10:06 Asa - PO 81 mg DAILY [facility] Administration Atorvastatin Calcium 10 mg 12/22/18 22:00 Lipitor - PO HS [facility] Carvedilol 12.5 mg 12/22/18 10:00 12/22/18 10:06 Coreg - PO 12.5 mg BID [facility] Administration Docusate Sodium 100 mg 12/22/18 10:00 12/22/18 10:07 Colace Liquid - PO 100 mg BID [facility] Administration Famotidine 20 mg 12/22/18 10:00 12/22/18 10:06 Pepcid - PO 20 mg DAILY [facility] Administration Furosemide 40 mg 12/22/18 10:00 12/22/18 10:06 Lasix Injection - IVPUSH 40 mg DAILY [facility] Administration Insulin Aspart 1 vial 12/22/18 11:00 Novolog Vial Sliding Scale - SQ ACHS [facility] Protocol Senna/Docusate Sodium 2 tablet 12/22/18 00:37 Pericolace - PO HS PRN CONSTIPATION Sertraline HCl 25 mg 12/22/18 10:00 12/22/18 10:06 Zoloft - PO 25 mg DAILY [facility] Administration Warfarin Sodium 5 mg 12/22/18 18:00 Coumadin - PO DAILY@1800 [facility] Laboratory Last Values WBC 5.5 K/mm3 (4.0-10.8) 12/22/18 06:30 RBC 3.86 M/mm3 (3.60-5.2) 12/22/18 06:30 Hgb 11.7 GM/dl (10.7-15.3) 12/22/18 06:30 Hct 35.0 % (32.4-45.2) 12/22/18 06:30 MCV 90.8 fl (80-96) 12/22/18 06:30 MCH 30.2 pg (25.7-33.7) 12/22/18 06:30 MCHC 33.3 g/dl (32.0-36.0) 12/22/18 06:30 RDW 13.3 % (11.6-15.6) 12/22/18 06:30 Plt Count 99 K/MM3 (134-434) L 12/22/18 06:30 MPV 9.9 fl (7.5-11.1) 12/22/18 06:30 Absolute Neuts (auto) 6.6 K/mm3 12/21/18 19:02 Neutrophils % 83.9 % (42.8-82.8) H 12/21/18 19:02 Lymphocytes % 6.9 % (8-40) L 12/21/18 19:02 Monocytes % 7.0 % (3.8-10.2) 12/21/18 19:02 Eosinophils % 2.0 % (0-4.5) 12/21/18 19: Basophils % 0.2 % (0-2.0) 12/21/18 19:02 PT with INR 24.5 SEC (10.2-13.0) H 12/21/18 19:02 INR 2.22 (0.82-1.09) H 12/21/18 19:02 PTT (Actin FS) 32.3 SECONDS (25.2-36.5) 12/21/18 19:02 VBG pH 7.36 (7.32-7.42) 12/21/18 19:02 POC VBG pCO2 44.5 mmHg (38-52) 12/21/18 19:02 POC VBG pO2 31.0 mmHg (28-48) 12/21/18 19:02 Mixed VBG HCO3 24.7 meq/L (19-25) 12/21/18 19:02 Sodium 139 mmol/L (136-145) 12/22/18 06:30 Potassium 4.2 mmol/L (3.5-5.1) 12/22/18 06:30 Chloride 102 mmol/L (98-107) 12/22/18 06:30 Carbon Dioxide 27 mmol/L (21-32) 12/22/18 06:30 Anion Gap 10 MMOL/L (8-16) 12/22/18 06:30 BUN 26 mg/dl (7-18) H 12/22/18 06:30 Creatinine 1.2 mg/dl (0.55-1.3) 12/22/18 06:30 Creat Clearance w eGFR 42.30 (>60) 12/22/18 06:30 POC Glucometer 136 UNITS (80-120) 12/22/18 11:48 Random Glucose 103 mg/dl (74-106) 12/22/18 06:30 Hemoglobin A1c % 5.7 % (4.2-6.3) 12/22/18 06:30 Lactic Acid 1.8 mmol/L (0.4-2.0) 12/21/18 19:02 Calcium 8.3 mg/dl (8.5-10) L 12/22/18 06:30 Phosphorus 3.5 mg/dl (2.5-4.9) 12/22/18 06:30 Magnesium 1.9 mg/dL (1.8-2.4) 12/22/18 06:30 Total Bilirubin 0.7 mg/dl (0.2-1) 12/22/18 06:30 AST 35 U/L (15-37) 12/22/18 06:30 ALT 34 U/L (13-61) 12/22/18 06:30 Alkaline Phosphatase 107 U/L (45-117) 12/22/18 06:30 Creatine Kinase 120 U/L (26-192) 12/22/18 06:30 Troponin I < 0.03 ng/ml (0.00-0.05) 12/22/18 06:30 B-Natriuretic Peptide 4783.9 pg/ml (5-450) H 12/22/18 06:30 Total Protein 6.6 g/dl (6.4-8.2) 12/22/18 06:30 Albumin 3.3 g/dl (3.4-5.0) L 12/22/18 06:30 Triglycerides 102 mg/dl (0-150) 12/22/18 06:30 Cholesterol 96 mg/dl (50-200) 12/22/18 06:30 Total LDL Cholesterol 35 mg/dl (5-100) 12/22/18 06:30 HDL Cholesterol 41 mg/dl (40-60) 12/22/18 06:30 Urine Color Yellow 12/21/18 21:33 Urine Appearance Clear 12/21/18 21:33 Urine pH 5.5 (4.5-8) 12/21/18 21:33 Ur Specific [place] 1.020 (1.010-1.035) 12/21/18 21:33 Urine Protein Negative (NEGATIVE) 12/21/18 21:33 Urine Glucose (UA) Negative (NEGATIVE) 12/21/18 21:33 Urine Ketones Negative (NEGATIVE) 12/21/18 21:33 Urine Blood Negative (NEGATIVE) 12/21/18 21:33 Urine Nitrite Negative (NEGATIVE) 12/21/18 21:33 Urine Bilirubin Negative (NEGATIVE) 12/21/18 21:33 Urine Urobilinogen 0.2 (0.2-1.0) 12/21/18 21:33 Ur Leukocyte Esterase Negative (NEGATIVE) 12/21/18 21:33 Influenza A (Rapid) Negative 12/21/18 19:12 Influenza B (Rapid) Negative 12/21/18 19:12 cxr: clear lungs ecg: afib 116, no ischemic changes tele: afib 100s a/p: 88 f hx cad, nstemi, pci, afib, htn, dchf, dm, hld, cva here with generalized weakness. fever, weakness: -got dose of abx already -infection w/u per primary team cad: -stable, no signs acs, no angina -cont asa, statin, bb afib: -cont coreg for rate control -cont coumadin per inr htn: -cont bb hld: -cont statin acute diastolic chf: -mild pulm congestion on exam -can continue lasix 40 iv qd for now, monitor daily chem7, wts -check echo
--- NOTE | 2018-12-22 16:46 | EKG ---
Test Reason : Blood Pressure : / mmHG Vent. Rate : 078 BPM Atrial Rate : 131 BPM P-R Int : 000 ms QRS Dur : 082 ms QT Int : 398 ms P-R-T Axes : 000 -12 106 degrees QTc Int : 453 ms ATRIAL FIBRILLATION LOW VOLTAGE QRS CANNOT RULE OUT ANTERIOR INFARCT (CITED ON OR BEFORE 21-DEC-2018) ABNORMAL ECG WHEN COMPARED WITH ECG OF 21-DEC-2018 19:33, VENT. RATE HAS DECREASED BY 38 BPM NONSPECIFIC T WAVE ABNORMALITY NO LONGER EVIDENT IN INFERIOR LEADS Confirmed by Lazaro Grey MD ([id number]) on 12/22/2018 4:45:26 PM Referred By: KEISHA Confirmed By:Lazaro Grey MD
[2018-12-22] MEDS ORDERED: WARFARIN NA 7.5 MG TABLET (FP) PO ONE (18:00)
[2018-12-22] MEDS: ATORVASTATIN CA 10 MG TABLET (FP) PO SCH (21:03)
[2018-12-23] MEDS: ALBUTEROL SO4 2.5/IPRATROPIUM 0.5 INH SOL 3 ML VIAL.NEB. NEB PRN (03:30)
[2018-12-23] MEDS: INSULIN SLIDING SCALE (NOVOLOG) 1 VIAL SQ SCH ×4 (06:40→22:23)
[2018-12-23 07:41] LABS: BASO % 0.4 % (0-2.0); EOS % 2.3 % (0-4.5); HEMATOCRIT 34.3 % (32.4-45.2); HEMOGLOBIN 11.1 GM/dl (10.7-15.3); LYMPH % 15.5 % (8-40); MCH 29.5 pg (25.7-33.7); MCHC 32.5 g/dl (32.0-36.0); MEAN CELL VOLUME 90.7 fl (80-96); MEAN PLT VOLUME 9.4 fl (7.5-11.1); MONO % 9.7 % (3.8-10.2); NEUT % 72.1 % (42.8-82.8); PLATELET COUNT 98 K/MM3 (134-434); RBC 3.78 M/mm3 (3.60-5.2); RDW 13.4 % (11.6-15.6); WHITE BLOOD COUNT 4.8 K/mm3 (4.0-10.8)
[2018-12-23 07:44] LABS: INR 1.6 (0.82-1.09); PROTHROMBIN TIME (PATIENT) 17.7 SEC (10.2-13.0)
[2018-12-23 07:46] LABS: ANION GAP 9 MMOL/L (8-16); BLOOD UREA NITROGEN 24 mg/dl (7-18); CHLORIDE 103 mmol/L (98-107); CO2 26 mmol/L (21-32); CREATININE 1.2 mg/dl (0.55-1.3); GLUCOSE,RANDOM 111 mg/dl (74-106); POTASSIUM 3.8 mmol/L (3.5-5.1); SODIUM 138 mmol/L (136-145)
--- NOTE | 2018-12-23 08:36 | PN ---
Physical Exam: SUBJECTIVE: Patient seen and examined. Feels weak and tired. Walked a few steps this morning with PT and became SOB. OBJECTIVE: Vital Signs Period Temp Pulse Resp BP Sys/Louis Pulse Ox Last 24 Hr 98.0 F-99.3 F 63-87 19-22 96-127/56-60 95-97 GENERAL: The patient is awake, alert, and fully oriented, in no acute distress. LUNGS: diffuse wheezing, poor air movement HEART: Regular rate and rhythm, S1, S2 without murmur, rub or gallop. ABDOMEN: Soft, nontender, nondistende EXTREMITIES: 2+ pulses, warm, well-perfused, no edema. NEUROLOGICAL: Cranial nerves II through XII grossly intact. Normal speech, gait not observed. PSYCH: Normal mood, normal affect. SKIN: Warm, dry, normal turgor Laboratory Results - last 24 hr 12/22/18 12/22/18 12/22/18 06:30 06:30 06:30 WBC 5.5 RBC 3.86 Hgb 11.7 Hct 35.0 MCV 90.8 MCH 30.2 MCHC 33.3 RDW 13.3 Plt Count 99 L MPV 9.9 Absolute Neuts (auto) Neutrophils % Lymphocytes % Monocytes % Eosinophils % Basophils % PT with INR 18.8 H INR 1.70 H Sodium 139 Potassium 4.2 Chloride 102 Carbon Dioxide 27 Anion Gap 10 BUN 26 H Creatinine 1.2 Creat Clearance w eGFR 42.30 POC Glucometer Random Glucose 103 Hemoglobin A1c % Calcium 8.3 L Phosphorus 3.5 Magnesium 1.9 Total Bilirubin 0.7 AST 35 ALT 34 Alkaline Phosphatase 107 Creatine Kinase 120 Troponin I B-Natriuretic Peptide 4783.9 H Total Protein 6.6 Albumin 3.3 L Triglycerides 102 Cholesterol 96 Total LDL Cholesterol 35 HDL Cholesterol 41 12/22/18 12/22/18 12/22/18 06:30 06:30 11:48 WBC RBC Hgb Hct MCV MCH MCHC RDW Plt Count MPV Absolute Neuts (auto) Neutrophils % Lymphocytes % Monocytes % Eosinophils % Basophils % PT with INR INR Sodium Potassium Chloride Carbon Dioxide Anion Gap BUN Creatinine Creat Clearance w eGFR POC Glucometer 136 Random Glucose Hemoglobin A1c % 5.7 Calcium Phosphorus Magnesium Total Bilirubin AST ALT Alkaline Phosphatase Creatine Kinase Troponin I < 0.03 B-Natriuretic Peptide Total Protein Albumin Triglycerides Cholesterol Total LDL Cholesterol HDL Cholesterol 0212/23/18 12/23/18 06:45 06:45 06:45 WBC 4.8 RBC 3.78 Hgb 11.1 Hct 34.3 MCV 90.7 MCH 29.5 MCHC 32.5 RDW 13.4 Plt Count 98 L MPV 9.4 Absolute Neuts (auto) 3.5 Neutrophils % 72.1 Lymphocytes % 15.5 Monocytes % 9.7 Eosinophils % 2.3 Basophils % 0.4 PT with INR 17.7 H INR 1.60 H Sodium 138 Potassium 3.8 Chloride 103 Carbon Dioxide 26 Anion Gap 9 BUN 24 H Creatinine 1.2 Creat Clearance w eGFR 42.30 POC Glucometer Random Glucose 111 H Hemoglobin A1c % Calcium 8.0 L Phosphorus Magnesium Total Bilirubin AST ALT Alkaline Phosphatase Creatine Kinase Troponin I B-Natriuretic Peptide Total Protein Albumin Triglycerides Cholesterol Total LDL Cholesterol HDL Cholesterol Active Medications Generic Name Dose Route Start Last Admin Trade Name Freq PRN Reason Stop Dose Admin Acetaminophen 650 mg 12/22/18 00:38 Tylenol - PO Q6H PRN FEVER Albuterol/Ipratropium 1 amp 12/22/18 00:37 12/23/18 03:30 Duoneb - NEB 1 amp Q6H PRN Administration SHORTNESS OF BREATH Aspirin 81 mg 12/22/18 10:00 12/22/18 10:06 Asa - PO 81 mg DAILY [facility] Administration Atorvastatin Calcium 10 mg 12/22/18 22:00 12/22/18 21:03 Lipitor - PO 10 mg HS [facility] Administration Carvedilol 12.5 mg 12/22/18 10:00 12/22/18 21:03 Coreg - PO 12.5 mg BID [facility] Administration Docusate Sodium 100 mg 12/22/18 10:00 12/22/18 21:10 Colace Liquid - PO Not Given BID [facility] Famotidine 20 mg 12/22/18 10:00 12/22/18 10:06 Pepcid - PO 20 mg DAILY [facility] Administration Furosemide 40 mg 12/22/18 10:00 12/22/18 10:06 Lasix Injection - IVPUSH 40 mg DAILY [facility] Administration Insulin Aspart 1 vial 12/22/18 11:00 12/23/18 06:40 Novolog Vial Sliding Scale - SQ Not Given ACHS [facility] Protocol Senna/Docusate Sodium 2 tablet 12/22/18 00:37 Pericolace - PO HS PRN CONSTIPATION Sertraline HCl 25 mg 12/22/18 10:00 12/22/18 10:06 Zoloft - PO 25 mg DAILY [facility] Administration Warfarin Sodium 5 mg 12/23/18 18:00 Coumadin - PO DAILY@1800 [facility] ASSESSMENT/PLAN 88 year-old female with a PMH significant for HTN, HLD, CAD s/p SC s/p stenting , atrial fibrillation on coumadin, CVA/TIAs, COPD, [id number], and renal calculi. Admitted with fever, cough, and weakness. Acute diastolic heart failure --has gotten 2 doses IV Lasix with episodes of hypotension; CXR shows no signs of congestion; will stop lasix --echo pending --daily weights, strict I&Os --cardiology following Atrial fibrillation --INR has dropped since admission, 2.2--> 1.6 --dose warfarin 7.5mg tonight --start lovenox 75mg BID until INR is therapeutic --rate is well-controlled, continue carvedilol Coronary artery disease --continue carvedilol, ASA, Lipitor Type II NIDDM --Novolog sliding scale coverage Fever, cough h/o COPD --uncertain etiology: exposed to grandchildren with viral upper respiratory infections v. possible pneumonia v. COPD exacerbation --12/22 sputum culture normal zee; 12/23 sputum pending; flu negative; blood , urine cultures NGTD --T101.5 on admission, has been afebrile for >24 hours; no leukocytosis; CXR clear but diffuse wheezing persists despite diuresis --start empiric abx: ceftriaxone (day #1), doxycycline (day #1) --duonebs QID scheduled --pre post Hypertension --episodes of hypotension --stop diuretics --hold ARB (on candisartan at home) Hyperlipidemia --continue Lipitor Depression --continue sertraline Type II NIDDM --not on home meds --Novolog sliding scale coverage FEN Fluids: PO intake adequate Electrolytes: replete as indicated Nutrition: low sodium, diabetic DVT prophylaxis: on coumadin but INR subtherapeutic; subq lovenox 75mg BID until INR between 2 and 3. Full code. Visit type - Emergency Visit Emergency Visit: Yes ED Registration Date: 12/22/18 Care time: The patient presented to the Emergency Department on the above date and was hospitalized for further evaluation of their emergent condition. - New Patient This patient is new to me today: Yes Date on this admission: 12/23/18 - Critical Care Critical Care patient: No
[2018-12-23] MEDS: ASPIRIN 81 MG CHEWABLE TABLETS PO SCH (09:57)
[2018-12-23] MEDS: FAMOTIDINE 20 MG TABLET PO SCH (09:57)
[2018-12-23] MEDS: CARVEDILOL 12.5 MG TABLET (FP) PO SCH ×2 (09:57→21:19)
[2018-12-23] MEDS: DOCUSATE SODIUM 50 MG/5 ML ML *BULK BOTTLE PO SCH ×2 (09:58→21:19)
[2018-12-23] MEDS: FUROSEMIDE 40 MG/4 ML INJECTABLE VIAL IVPUSH SCH (09:58)
[2018-12-23] MEDS: SERTRALINE HCL 25 MG TABLET (FP) PO SCH (09:58)
[2018-12-23] MEDS: CEFTRIAXONE 1 G/50 ML PREMIX 50 ML IVPB SCH (14:11)
[2018-12-23] MEDS: ENOXAPARIN NA (PORCINE) 80 MG/0.8 ML DISP.SYRIN SQ SCH ×2 (14:12→21:19)
[2018-12-23] MEDS: DOXYCYCLINE INJECTION 100 MG in DEXTROSE 5%-WATER - 100 ML IVPB SCH ×2 (14:12→22:15)
--- NOTE | 2018-12-23 15:45 | ECHO ---
Name: SHARLENE NAVARRO Exam:Adult Echocardiogram Study Date: 12/23/2018 02:40 PM Age: 88 yrs Reason For Study: VOLUME OVERLOAD Height: 67 in Weight: 165 lb BSA: 1.9 m2 MMode/2D Measurements & Calculations IVSd: 1.1 cm Ao root diam: 2.9 cm LVIDd: 2.2 cm LA dimension: 4.2 cm LVIDs: 3.0 cm LVPWd: 3.0 cm EDV(Teich): 15.5 ml LVOT diam: 2.0 cm ESV(Teich): 35.7 ml Doppler Measurements & Calculations MV E max conrado: 116.3 cm/sec MV A max conrado: 36.6 cm/sec MV dec slope: 795.7 cm/sec2 MV E/A: 3.2 Ao V2 max: 212.5 cm/sec LV V1 max P.5 mmHg Ao max P.1 mmHg LV V1 mean P.96 mmHg Ao V2 mean: 150.8 cm/sec LV V1 max: 59.6 cm/sec Ao mean P.8 mmHg LV V1 mean: 45.5 cm/sec Ao V2 VTI: 45.1 cm LV V1 VTI: 11.9 cm HARLAN(I,D): 0.81 cm2 HARLAN(V,D): 0.86 cm2 MR max conrado: 387.3 cm/sec SV(LVOT): 36.5 ml MR max P.4 mmHg TR max conrado: 269.9 cm/sec PI end-d conrado: 70.7 cm/sec TR max P.2 mmHg Procedure A complete two-dimensional transthoracic echocardiogram was performed (2D, M-mode, Doppler and color flow Doppler). Technically limited study. Left Ventricle The left ventricle is normal in size. Left ventricular systolic function is normal. Ejection Fraction = 55- 60%. No regional wall motion abnormalities noted. Right Ventricle The right ventricle is normal size. The right ventricular systolic function is normal. Atria The left atrium is mildly dilated. Right atrial size is normal. Mitral Valve There is mild mitral annular calcification. There is mild mitral regurgitation. Tricuspid Valve The tricuspid valve is normal in structure and function. There is mild to moderate tricuspid regurgit ation. Pulmonary artery systolic pressure is at least 35 mmHg if RA pressure is assumed 3 mmHg. Aortic Valve There is moderate aortic valve thickening. Moderate to severe valvular aortic stenosis. The calculate d aortic valve area using the continuity equation is 0.9 cm2. Dimenstionless Index (DI) is estimated 0.28. No aortic regurgitation is present. Pulmonic Valve The pulmonic valve is not well visualized. Great Vessels The aortic root is normal size. Pericardium/Pleura There is no pericardial effusion. Interpretation Summary Technically limited study The left ventricle is normal in size. Left ventricular systolic function is normal. No regional wall motion abnormalities noted. Ejection Fraction = 55-60%. The right ventricular systolic function is normal. The left atrium is mildly dilated. Right atrial size is normal. There is mild mitral annular calcification. There is mild mitral regurgitation. The tricuspid valve is normal in structure and function. There is mild to moderate tricuspid regurgitation. Pulmonary artery systolic pressure is at least 35 mmHg if RA pressure is assumed 3 mmHg There is moderate aortic valve thickening. Moderate to severe valvular aortic stenosis. The calculated aortic valve area using the continuity equation is 0.9 cm2. Dimenstionless Index (DI) is estimated 0.28 No aortic regurgitation is present. There is no pericardial effusion. Previous study is not available for comparison Robbin Miguel MD 12/23/2018 03:44 PM
[2018-12-23] MEDS: ALBUTEROL SO4 2.5/IPRATROPIUM 0.5 INH SOL 3 ML VIAL.NEB. NEB SCH ×2 (16:33→20:17)
[2018-12-23] MEDS ORDERED: WARFARIN NA 5 MG TABLET (UD) PO SCH (18:00)
[2018-12-23] MEDS ORDERED: WARFARIN NA 2.5 MG TABLET (FP) PO ONE (19:13)
[2018-12-23] MEDS: ACETAMINOPHEN 325 MG TABLET (FP) PO PRN (20:30)
[2018-12-23] MEDS: ATORVASTATIN CA 10 MG TABLET (FP) PO SCH (21:19)
[2018-12-23] MEDS ORDERED: PT OWN MED DRAWER 7, Y5N ONE (22:12)
[2018-12-24] MEDS: INSULIN SLIDING SCALE (NOVOLOG) 1 VIAL SQ SCH ×3 (06:32→16:57)
[2018-12-24] MEDS: ALBUTEROL SO4 2.5/IPRATROPIUM 0.5 INH SOL 3 ML VIAL.NEB. NEB SCH ×4 (07:50→21:09)
[2018-12-24 08:05] LABS: INR 1.84 (0.82-1.09); PROTHROMBIN TIME (PATIENT) 20.4 SEC (10.2-13.0)
[2018-12-24 08:10] LABS: BASO % 0.6 % (0-2.0); EOS % 8.3 % (0-4.5); HEMATOCRIT 33.6 % (32.4-45.2); HEMOGLOBIN 11.3 GM/dl (10.7-15.3); LYMPH % 20.3 % (8-40); MCH 30.5 pg (25.7-33.7); MCHC 33.5 g/dl (32.0-36.0); MEAN CELL VOLUME 91.1 fl (80-96); MEAN PLT VOLUME 9.6 fl (7.5-11.1); MONO % 13.4 % (3.8-10.2); NEUT % 57.4 % (42.8-82.8); PLATELET COUNT 84 K/MM3 (134-434); RBC 3.69 M/mm3 (3.60-5.2); RDW 13.3 % (11.6-15.6); WHITE BLOOD COUNT 3.8 K/mm3 (4.0-10.8)
[2018-12-24 08:30] LABS: ALBUMIN 2.7 g/dl (3.4-5.0); BILIRUBIN,TOTAL 0.5 mg/dl (0.2-1); BLOOD UREA NITROGEN 26 mg/dl (7-18); CREATININE 1.2 mg/dl (0.55-1.3); SGOT/AST 31 U/L (15-37); TOT PROT 5.7 g/dl (6.4-8.2)
[2018-12-24 08:34] LABS: ANION GAP 7 MMOL/L (8-16); CHLORIDE 102 mmol/L (98-107); CO2 29 mmol/L (21-32); GLUCOSE,RANDOM 108 mg/dl (74-106); POTASSIUM 3.5 mmol/L (3.5-5.1); SODIUM 138 mmol/L (136-145)
[2018-12-24 08:35] LABS: ALK PHOS 83 U/L (45-117); CALCIUM 7.9 mg/dl (8.5-10); SGPT/ALT 25 U/L (13-61)
[2018-12-24] MEDS ORDERED: DOXYCYCLINE INJECTION 100 MG in DEXTROSE 5%-WATER 100 ML IVPB SCH (10:00)
[2018-12-24] MEDS ORDERED: DOXYCYCLINE HYCLATE 100 MG VIAL ONE ×2 (10:26→21:06)
[2018-12-24] MEDS ORDERED: DEXTROSE 5%-WATER 100 ML IVPB ONE ×2 (10:27→21:06)
[2018-12-24] MEDS: ASPIRIN 81 MG CHEWABLE TABLETS PO SCH (10:30)
[2018-12-24] MEDS: CEFTRIAXONE 1 G/50 ML PREMIX 50 ML IVPB SCH (10:30)
[2018-12-24] MEDS: DOCUSATE SODIUM 50 MG/5 ML ML *BULK BOTTLE PO SCH ×2 (10:30→21:28)
[2018-12-24] MEDS: SERTRALINE HCL 25 MG TABLET (FP) PO SCH (10:30)
[2018-12-24] MEDS: CARVEDILOL 12.5 MG TABLET (FP) PO SCH ×2 (10:30→21:09)
[2018-12-24] MEDS: DOXYCYCLINE INJECTION 100 MG in DEXTROSE 5%-WATER 100 ML IVPB SCH ×2 (10:30→21:10)
[2018-12-24] MEDS: FAMOTIDINE 20 MG TABLET PO SCH (10:30)
[2018-12-24] MEDS: ENOXAPARIN NA (PORCINE) 80 MG/0.8 ML DISP.SYRIN SQ SCH ×2 (10:31→21:10)
--- NOTE | 2018-12-24 16:37 | PN ---
Physical Exam: SUBJECTIVE: Patient seen and examined oob to chair. States feeling much better. OBJECTIVE: Vital Signs Period Temp Pulse Resp BP Sys/Louis Pulse Ox Last 24 Hr 98.0 F-98.4 F 70-88 18-20 100-130/48-74 94-97 GENERAL: The patient is awake, alert, and fully oriented, in no acute distress. LUNGS: good air movement, scattered expiratory wheezing, improved HEART: Regular rate and rhythm, S1, S2 without murmur, rub or gallop. ABDOMEN: Soft, nontender, nondistende EXTREMITIES: 2+ pulses, warm, well-perfused, no edema. NEUROLOGICAL: Cranial nerves II through XII grossly intact. Normal speech, gait not observed. PSYCH: Normal mood, normal affect. SKIN: Warm, dry, normal turgor Laboratory Results - last 24 hr 12/23/18 12/24/18 12/24/18 22:18 06:28 07:15 WBC 3.8 L RBC 3.69 Hgb 11.3 Hct 33.6 MCV 91.1 MCH 30.5 MCHC 33.5 RDW 13.3 Plt Count 84 L MPV 9.6 Absolute Neuts (auto) 2.2 Neutrophils % 57.4 Lymphocytes % 20.3 Monocytes % 13.4 H Eosinophils % 8.3 H Basophils % 0.6 PT with INR INR Sodium Potassium Chloride Carbon Dioxide Anion Gap BUN Creatinine Creat Clearance w eGFR POC Glucometer 112 105 Random Glucose Calcium Magnesium Total Bilirubin AST ALT Alkaline Phosphatase Total Protein Albumin 12/24/18 12/24/18 12/24/18 07:15 07:15 11:05 WBC RBC Hgb Hct MCV MCH MCHC RDW Plt Count MPV Absolute Neuts (auto) Neutrophils % Lymphocytes % Monocytes % Eosinophils % Basophils % PT with INR 20.4 H INR 1.84 H Sodium 138 Potassium 3.5 Chloride 102 Carbon Dioxide 29 Anion Gap 7 L BUN 26 H Creatinine 1.2 Creat Clearance w eGFR 42.30 POC Glucometer 131 Random Glucose 108 H Calcium 7.9 L Magnesium 2.0 Total Bilirubin 0.5 AST 31 ALT 25 Alkaline Phosphatase 83 D Total Protein 5.7 L Albumin 2.7 L Active Medications Generic Name Dose Route Start Last Admin Trade Name Freq PRN Reason Stop Dose Admin Acetaminophen 650 mg 12/22/18 00:38 12/23/18 20:30 Tylenol - PO 650 mg Q6H PRN Administration FEVER Albuterol/Ipratropium 1 amp 12/23/18 16:00 12/24/18 12:00 Duoneb - NEB 1 amp RQID [facility] Administration Aspirin 81 mg 12/22/18 10:00 12/24/18 10:30 Asa - PO 81 mg DAILY [facility] Administration Atorvastatin Calcium 10 mg 12/22/18 22:00 12/23/18 21:19 Lipitor - PO 10 mg HS [facility] Administration Carvedilol 12.5 mg 12/22/18 10:00 12/24/18 10:30 Coreg - PO 12.5 mg BID [facility] Administration Docusate Sodium 100 mg 12/22/18 10:00 12/24/18 10:30 Colace Liquid - PO 100 mg BID [facility] Administration Enoxaparin Sodium 75 mg 12/23/18 13:15 12/24/18 10:31 Lovenox - SQ 75 mg BID [facility] Administration Famotidine 20 mg 12/22/18 10:00 12/24/18 10:30 Pepcid - PO 20 mg DAILY [facility] Administration Ceftriaxone Sodium 50 mls @ 100 mls/hr 12/23/18 13:00 12/24/18 10:30 Ceftriaxone 1 Gm-D5w Bag IVPB 100 mls/hr DAILY [facility] Administration Protocol Doxycycline Hyclate 100 mg/ 100 mls @ 100 mls/hr 12/24/18 10:00 12/24/18 10: 30 Dextrose IVPB 100 mls/hr BID [facility] Administration Insulin Aspart 1 vial 12/22/18 11:00 12/24/18 11:08 Novolog Vial Sliding Scale - SQ Not Given ACHS [facility] Protocol Senna/Docusate Sodium 2 tablet 12/22/18 00:37 Pericolace - PO HS PRN CONSTIPATION Sertraline HCl 25 mg 12/22/18 10:00 12/24/18 10:30 Zoloft - PO 25 mg DAILY [facility] Administration Warfarin Sodium 7.5 mg 12/24/18 18:00 Coumadin - PO DAILY@1800 [facility] ASSESSMENT/PLAN 88 year-old female with a PMH significant for HTN, HLD, CAD s/p CT s/p stenting , atrial fibrillation on coumadin, CVA/TIAs, COPD, [id number], and renal calculi. Admitted with fever, cough, and weakness. Acute diastolic heart failure --over past 48 hoiurs became hypotensive after IV Lasix --BP stabilized when diuretics stopped --continue to hold diuretics Severe aortic stenosis --12/24 Echo: severe --patient does not recall this as previous diagnosis --has been seen by Dr. Moctezuma on this visit but in speaking with patient this evening discovered patient follows regularly with Dr. Higgins; consult placed for Dr. Higgins without objection from Dr. Moctezuma Atrial fibrillation --INR dropped since admission, 2.2--> 1.6-->1.84 --dose warfarin 7.5mg tonight --continue lovenox 75mg BID until INR is therapeutic --rate is well-controlled, continue carvedilol Coronary artery disease --continue carvedilol, ASA, Lipitor Type II NIDDM --Novolog sliding scale coverage Fever, cough h/o COPD --uncertain etiology: exposed to grandchildren with viral upper respiratory infections v. possible pneumonia v. COPD exacerbation --sputum cx neg x 2; flu negative; blood, urine cultures NGTD --T101.5 on admission, has been afebrile for >48 hours; no leukocytosis; CXR clear --wheezing improved today on exam; satting 96% on room air at rest, 94% on room air with flat surface walking 100 feet --continue ceftriaxone (day #2), doxycycline (day #2) --duonebs QID scheduled --repeat CXR in am Hypertension --BP stable off diuretics --continue to hold ARB (on candisartan at home) Hyperlipidemia --continue Lipitor Depression --continue sertraline Type II NIDDM --not on home meds --Novolog sliding scale coverage FEN Fluids: PO intake adequate Electrolytes: replete as indicated Nutrition: low sodium, diabetic DVT prophylaxis: on coumadin but INR subtherapeutic; subq lovenox 75mg BID until INR between 2 and 3. Full code. Visit type - Emergency Visit Emergency Visit: Yes ED Registration Date: 12/22/18 Care time: The patient presented to the Emergency Department on the above date and was hospitalized for further evaluation of their emergent condition. - New Patient This patient is new to me today: No - Critical Care Critical Care patient: No
[2018-12-24] MEDS: ACETAMINOPHEN 325 MG TABLET (FP) PO PRN (17:31)
[2018-12-24] MEDS ORDERED: WARFARIN NA 7.5 MG TABLET (FP) PO SCH (18:00)
[2018-12-24] MEDS: ATORVASTATIN CA 10 MG TABLET (FP) PO SCH (21:10)
[2018-12-24] MEDS ORDERED: PT OWN MED DRAWER 7, Y5N ONE (21:27)
[2018-12-25] MEDS ORDERED: INSULIN SLIDING SCALE (NOVOLOG) 1 VIAL SQ SCH (07:00)
[2018-12-25 07:52] LABS: INR 2.19 (0.82-1.09); PROTHROMBIN TIME (PATIENT) 24.1 SEC (10.2-13.0)
[2018-12-25] MEDS ORDERED: DOCUSATE NA 100 MG/10 ML UNIT-DOSE CUPS PO SCH (08:25)
[2018-12-25] MEDS: ALBUTEROL SO4 2.5/IPRATROPIUM 0.5 INH SOL 3 ML VIAL.NEB. NEB SCH (08:41)
[2018-12-25] MEDS ORDERED: DOXYCYCLINE HYCLATE 100 MG VIAL ONE (08:55)
[2018-12-25] MEDS ORDERED: DEXTROSE 5%-WATER 100 ML IVPB ONE (08:55)
[2018-12-25] MEDS: CEFTRIAXONE 1 G/50 ML PREMIX 50 ML IVPB SCH (09:07)
[2018-12-25] MEDS: CARVEDILOL 12.5 MG TABLET (FP) PO SCH (09:07)
[2018-12-25] MEDS: ENOXAPARIN NA (PORCINE) 80 MG/0.8 ML DISP.SYRIN SQ SCH (09:07)
[2018-12-25] MEDS: ASPIRIN 81 MG CHEWABLE TABLETS PO SCH (09:07)
[2018-12-25] MEDS: SERTRALINE HCL 25 MG TABLET (FP) PO SCH (09:07)
[2018-12-25] MEDS: FAMOTIDINE 20 MG TABLET PO SCH (09:08)
[2018-12-25] MEDS: DOXYCYCLINE INJECTION 100 MG in DEXTROSE 5%-WATER 100 ML IVPB SCH (09:56)
[2018-12-25] MEDS ORDERED: POLYETHYLENE GLYCOL 3350 119 GM BTL PO SCH (10:00)
--- NOTE | 2018-12-25 11:43 | PN ---
Progress Note, Physician History of Present Illness: Last office visit with Dr. Higgins 10/14/2018. Dyspnea, cough, wheeze improving with treatment. - Current Medication List Current Medications: Active Medications Acetaminophen (Tylenol -) 650 mg PO Q6H PRN PRN Reason: FEVER Last Admin: 12/24/18 17:31 Dose: 650 mg Albuterol/Ipratropium (Duoneb -) 1 amp NEB RQID [facility] Last Admin: 12/25/18 08:41 Dose: 1 amp Aspirin (Asa -) 81 mg PO DAILY [facility] Last Admin: 12/25/18 09:07 Dose: 81 mg Atorvastatin Calcium (Lipitor -) 10 mg PO HS [facility] Last Admin: 12/24/18 21:10 Dose: 10 mg Carvedilol (Coreg -) 12.5 mg PO BID [facility] Last Admin: 12/25/18 09:07 Dose: 12.5 mg Enoxaparin Sodium (Lovenox -) 75 mg SQ BID [facility] Last Admin: 12/25/18 09:07 Dose: 75 mg Famotidine (Pepcid -) 20 mg PO DAILY [facility] Last Admin: 12/25/18 09:08 Dose: 20 mg Ceftriaxone Sodium (Ceftriaxone 1 Gm-D5w Bag) 50 mls @ 100 mls/hr IVPB DAILY [facility]; Protocol Last Admin: 12/25/18 09:07 Dose: 100 mls/hr Doxycycline Hyclate 100 mg/ (Dextrose) 100 mls @ 100 mls/hr IVPB BID [facility] Last Admin: 12/25/18 09:56 Dose: 100 mls/hr Insulin Aspart (Novolog Vial Sliding Scale -) 1 vial SQ BIDAC [facility]; Protocol Last Admin: 12/25/18 06:43 Dose: Not Given Polyethylene Glycol (Miralax (For Daily Use) -) 17 gm PO BID [facility] Last Admin: 12/25/18 09:40 Dose: 17 gm Senna/Docusate Sodium (Pericolace -) 2 tablet PO HS PRN PRN Reason: CONSTIPATION Sertraline HCl (Zoloft -) 25 mg PO DAILY [facility] Last Admin: 12/25/18 09:07 Dose: 25 mg Warfarin Sodium (Coumadin -) 7.5 mg PO DAILY@1800 [facility] Last Admin: 12/24/18 17:31 Dose: 7.5 mg - Objective Vital Signs: Vital Signs Temperature 97.6 F 12/25/18 06:47 Pulse Rate 75 12/25/18 06:47 Respiratory Rate 18 12/25/18 08:47 Blood Pressure 152/65 12/25/18 06:47 O2 Sat by Pulse Oximetry (%) 99 12/25/18 06:47 Constitutional: Yes: No Distress, Calm Neck: Yes: Supple Cardiovascular: Yes: Pulse Irregular, Murmur (2/6 SM) Respiratory: Yes: Regular, Diminished, On Nasal O2 Gastrointestinal: Yes: Normal Bowel Sounds, Soft Edema: No Labs: CBC, BMP 12/24/18 07:15 12/24/18 07:15 INR, PTT INR 2.19 (0.82-1.09) H 12/25/18 07:00 - ....Imaging Chest X-ray: Report Reviewed (NAD) EKG: Report Reviewed (Afib @ 116) Problem List - Problems (1) S/P coronary artery stent placement Code(s): Z95.5 - PRESENCE OF CORONARY ANGIOPLASTY IMPLANT AND GRAFT (2) Chronic anticoagulation Code(s): Z79.01 - SNF (CURRENT) USE OF ANTICOAGULANTS (3) Diastolic dysfunction with chronic heart failure Code(s): I50.32 - CHRONIC DIASTOLIC (CONGESTIVE) HEART FAILURE (4) Atrial fibrillation Code(s): I48.91 - UNSPECIFIED ATRIAL FIBRILLATION Qualifiers: Atrial fibrillation type: persistent Qualified Code(s): I48.1 - Persistent atrial fibrillation (5) CAD in [place] artery Code(s): I25.10 - ATHSCL HEART DISEASE OF [place] CORONARY ARTERY W/O ANG PCTRS (6) Fever Code(s): R50.9 - FEVER, UNSPECIFIED Qualifiers: Fever type: unspecified Qualified Code(s): R50.9 - Fever, unspecified (7) HLD (hyperlipidemia) Code(s): E78.5 - HYPERLIPIDEMIA, UNSPECIFIED Qualifiers: Hyperlipidemia type: pure hypercholesterolemia Qualified Code(s): E78.00 - Pure hypercholesterolemia, unspecified; E78.0 - Pure hypercholesterolemia (8) Weakness Code(s): R53.1 - WEAKNESS (9) COPD (chronic obstructive pulmonary disease) Code(s): J44.9 - CHRONIC OBSTRUCTIVE PULMONARY DISEASE, UNSPECIFIED Qualifiers: COPD type: unspecified COPD Qualified Code(s): J44.9 - Chronic obstructive pulmonary disease, unspecified Assessment/Plan ecg: afib 116, no ischemic changes similar to previous tele: afib 70s 12/23/2018 Echo: Normal LV size and fxn LVEF 55-60%, normal RV size and fxn, mild MG 11 mmHg HARLAN 0.9 cm^2, mild LAE, mild MR, mild-mod TR RVSP 35 mmHg 10/14/2018 Echo: Normal LV size and fxn LVEF 55-60%, normal RV size and fxn, mild MG 11 mmHg HARLAN 1.0 cm^2, mild MR, mild-mod TR RVSP 37 mmHg 12/27/2011 No ischemia, LVEF 88% 1. Fever, cough, weakness r/o PNA 2. CAD h/o NSTEMI, PCI 3. Persistent Afib CHADSVASC=9 with therapeutic INR 4. Acute on chronic diastolic failure resolved 5. Hyperlipidemia 6. COPD 7. Thrombocytopenia P: 1. Continue carvedilol 12.5 bid, ASA 81 qd, Lipitor 10 qhs, resume ARB as hemodynamics tolerate, she is on Candesartan 4 qd at home 2. D/c Lovenox, continue Coumadin per INR 3. Echo results of aortic valve parameters are similar to previous study 10/2018 , she will follow-up with Dr. Higgins 4. Complete empiric abx course, BD, O2 as needed 5. Thank you for consultative opportunity
[2018-12-25 11:50] VITALS: BP 132/57; PULSE 70; TEMP 97.7
--- NOTE | 2018-12-25 11:53 | DS ---
Physical Exam: SUBJECTIVE: Patient seen and examined OBJECTIVE: Vital Signs Period Temp Pulse Resp BP Sys/Louis Pulse Ox Last 24 Hr 97.6 F-98.9 F 72-88 17-20 116-152/51-65 95-100 PHYSICAL EXAM GENERAL: The patient is awake, alert, and fully oriented, in no acute distress. HEAD: Normal with no signs of trauma. EYES: PERRL, extraocular movements intact, sclera anicteric, conjunctiva clear. ENT: Ears normal, nares patent, oropharynx clear without exudates, moist mucous membranes. NECK: Trachea midline, full range of motion, supple. LUNGS: Breath sounds equal, clear to auscultation bilaterally, no wheezes, no crackles, no accessory muscle use. HEART: Regular rate and rhythm, S1, S2 without murmur, rub or gallop. ABDOMEN: Soft, nontender, nondistended, normoactive bowel sounds, no guarding, no rebound, no hepatosplenomegaly, no masses. EXTREMITIES: 2+ pulses, warm, well-perfused, no edema. NEUROLOGICAL: Cranial nerves II through XII grossly intact. Normal speech, gait not observed. PSYCH: Normal mood, normal affect. SKIN: Warm, dry, normal turgor, no rashes or lesions noted. LABS Laboratory Results - last 24 hr 12/25/18 12/25/18 12/25/18 06:24 07:00 11:32 PT with INR 24.1 H INR 2.19 H POC Glucometer 102 131 HOSPITAL COURSE: Date of Admission:12/22/18 Date of Discharge: 12/25/18 Minutes to complete discharge: 35 Discharge Summary Reason For Visit: CHF, GENERALIZED WEAKNESS Current Active Problems Atrial fibrillation (Acute) CAD in [place] artery (Acute) Fever (Acute) Gait disturbance (Acute) HLD (hyperlipidemia) (Acute) Prophylactic measure (Acute) Volume overload (Acute) Weakness (Acute) Condition: Stable - Instructions Referrals: Mukesh Saini MD [Primary Care Provider] - - Home Medications Comprehensive Discharge Medication List: Ambulatory Orders Aspirin [ASA -] 81 mg PO DAILY 12/21/18 Candesartan Cilexetil [Atacand] 4 mg PO HS 12/21/18 Carvedilol [Coreg -] 12.5 mg PO BID 12/21/18 Famotidine [Acid Controller] 20 mg PO DAILY 12/21/18 Furosemide [Lasix] 20 mg PO DAILY 12/21/18 Potassium Chloride 0 meq PO BID 12/21/18 Sertraline HCl [Zoloft -] 0 mg PO DAILY 12/21/18 Simvastatin [Zocor -] 20 mg PO HS 12/21/18 Warfarin Sodium [Coumadin] 5 mg PO ASDIR 12/21/18 This patient is new to me today: No Emergency Visit: Yes ED Registration Date: 12/22/18 Care time: The patient presented to the Emergency Department on the above date and was hospitalized for further evaluation of their emergent condition. Critical Care patient: No - Discharge Referral Referred to [facility] Yes Physician Referral: Mukesh Saini MD (Int Med)
== END 2018-12-25 13:49 | disposition home or self-care (01) | DRG 292 ==
LOC: FER 18:23 → FM/S 22:55 → OBSVTOIN 12-22 00:38
PROVIDERS: ADMIT Internal Medicine; ATTEND Nurse Practitioner Acute Care
DX: I11.0 Hypertensive heart disease with heart failure (principal); J44.1 Chronic obstructive pulmonary disease with (acute) exacerbation; I48.1 Persistent atrial fibrillation; I50.33 Acute on chronic diastolic (congestive) heart failure; E11.9 Type 2 diabetes mellitus without complications; I25.10 Atherosclerotic heart disease of native coronary artery without angina pectoris; D69.6 Thrombocytopenia, unspecified; R50.9 Fever, unspecified; I95.2 Hypotension due to drugs; Z86.73 Personal history of transient ischemic attack (TIA), and cerebral infarction without residual deficits; I25.2 Old myocardial infarction; Z95.5 Presence of coronary angioplasty implant and graft; E78.5 Hyperlipidemia, unspecified; H26.9 Unspecified cataract; Z87.891 Personal history of nicotine dependence; K44.9 Diaphragmatic hernia without obstruction or gangrene; F32.9 Major depressive disorder, single episode, unspecified; Z79.01 Long term (current) use of anticoagulants; I35.0 Nonrheumatic aortic (valve) stenosis; R26.9 Unspecified abnormalities of gait and mobility
CPT/HCPCS: 36415; 71045-TC-FY; 80048; 80053; 80061; 81003; 82550; 82803; 82962; 83036; 83605; 83735; 83880; 84100; 84484; 85025; 85027; 85610; 85730; 87040; 87070; 87086; 87205; 87633; 87804; 93005; 93306-TC; 94640; 97116-GP; 97162-GP; 99283-25; G0378; J0131